=== PATIENT | male | born 1970 | race Caucasian/White ===

== ENCOUNTER 2021-09-19 22:37 | Emergency (ER) | payer BC ==
--- NOTE | 2021-09-19 22:54 | ED ---
ENT HPI - General Chief complaint: ENT Stated complaint: Food stuck in throat Time Seen by Provider: 09/19/21 22:47 Source: patient Mode of arrival: ambulatory Limitations: no limitations - Related Data Allergies Allergy/AdvReac Type Severity Reaction Status Date / Time No Known Allergies Allergy Verified 09/19/21 22:39 Review of Systems ROS Statement: Those systems with pertinent positive or pertinent negative responses have been documented in the HPI. ROS Other: All systems not noted in ROS Statement are negative. Past Medical History Past Medical History: No Reported History History of Any Multi-Drug Resistant Organisms: None Reported Past Surgical History: Hernia Repair, Orthopedic Surgery Past Psychological History: No Psychological Hx Reported Smoking Status: Never smoker Past Alcohol Use History: Occasional Past Drug Use History: None Reported General Exam Limitations: no limitations Course Vital Signs 09/19/21 09/20/21 09/20/21 22:39 00:32 06:08 Temperature 97.6 F 97.7 F Pulse Rate 76 56 L 50 L Respiratory 18 16 18 Rate Blood Pressure 152/92 125/70 149/73 O2 Sat by Pulse 97 95 Oximetry Medical Decision Making - Lab Data Result diagrams: 09/19/21 23:27 09/19/21 23:27 Lab Results 09/19/21 09/19/21 09/19/21 Range/Units 23:27 23:27 23:27 WBC 8.2 (3.8-10.6) k/uL RBC 4.90 (4.30-5.90) m/uL Hgb 14.4 (13.0-17.5) gm/dL Hct 44.1 (39.0-53.0) % MCV 90.0 (80.0-100.0) fL MCH 29.3 (25.0-35.0) pg MCHC 32.5 (31.0-37.0) g/dL RDW 13.1 (11.5-15.5) % Plt Count 296 (150-450) k/uL MPV 7.2 Neutrophils % 73 % Lymphocytes % 18 % Monocytes % 5 % Eosinophils % 3 % Basophils % 1 % Neutrophils # 6.0 (1.3-7.7) k/uL Lymphocytes # 1.5 (1.0-4.8) k/uL Monocytes # 0.4 (0-1.0) k/uL Eosinophils # 0.2 (0-0.7) k/uL Basophils # 0.0 (0-0.2) k/uL PT 10.9 (9.0-12.0) sec INR 1.0 (<1.2) APTT 25.4 (22.0-30.0) sec Sodium 143 (137-145) mmol/L Potassium 3.9 (3.5-5.1) mmol/L Chloride 110 H (98-107) mmol/L Carbon Dioxide 23 (22-30) mmol/L Anion Gap 10 mmol/L BUN 19 (9-20) mg/dL Creatinine 0.79 (0.66-1.25) mg/dL Est GFR (CKD-EPI)AfAm >90 (>60 ml/min/1.73 sqM) Est GFR (CKD-EPI)NonAf >90 (>60 ml/min/1.73 sqM) Glucose 90 (74-99) mg/dL Calcium 9.3 (8.4-10.2) mg/dL Phosphorus 4.0 (2.5-4.5) mg/dL Magnesium 2.3 (1.6-2.3) mg/dL Total Bilirubin 0.7 (0.2-1.3) mg/dL AST 23 (17-59) U/L ALT 23 (4-49) U/L Alkaline Phosphatase 90 (38-126) U/L Total Protein 7.3 (6.3-8.2) g/dL Albumin 4.6 (3.5-5.0) g/dL Disposition Clinical Impression: Esophageal foreign body Disposition: HOME SELF-CARE Condition: Good Instructions (If sedation given, give patient instructions): Esophageal Foreign Body (ED) Is patient prescribed a controlled substance at d/c from ED?: No Referrals: Jillian Ferrer MD [STAFF PHYSICIAN] - 1-2 days
[2021-09-19] MEDS ORDERED: GLUCAGON 1 MG/ML VIAL IVP STA (23:26)
[2021-09-19] MEDS ORDERED: NITROGLYCERIN SL TABS 0.4 MG TAB SUBLINGUAL STA (23:26)
[2021-09-19] MEDS ORDERED: SODIUM CHLORIDE 0.9% 1,000 ML IV STA ×2 (23:26)
[2021-09-19 23:54] LABS: Basophils % (A) 1 %; Eosinophils # (A) 0.2 k/uL (0-0.7); Eosinophils % (A) 3 %; HCT 44.1 % (39.0-53.0); HGB 14.4 gm/dL (13.0-17.5); Lymphocytes # (A) 1.5 k/uL (1.0-4.8); Lymphocytes % (A) 18 %; MCH 29.3 pg (25.0-35.0); MCHC 32.5 g/dL (31.0-37.0); Mean Platelet Volume 7.2; Monocytes # (A) 0.4 k/uL (0-1.0); Monocytes % (A) 5 %; Neutrophils % (A) 73 %; Platelet Count 296 k/uL (150-450); RDW 13.1 % (11.5-15.5); WBC 8.2 k/uL (3.8-10.6)
[2021-09-20 00:16] LABS: Partial Thromboplastin Time 25.4 sec (22.0-30.0); Prothrombin Time 10.9 sec (9.0-12.0)
[2021-09-20 00:33] LABS: ALT 23 U/L (4-49); AST 23 U/L (17-59); African American GFR (CKD) >90 (>60 ml/min/1.73 sqM); Albumin 4.6 g/dL (3.5-5.0); Alkaline Phosphatase 90 U/L (38-126); Blood Urea Nitrogen 19 mg/dL (9-20); Calcium 9.3 mg/dL (8.4-10.2); Carbon Dioxide 23 mmol/L (22-30); Glucose 90 mg/dL (74-99); Magnesium 2.3 mg/dL (1.6-2.3); Non-African American GFR(CKD) >90 (>60 ml/min/1.73 sqM); Potassium 3.9 mmol/L (3.5-5.1); Sodium 143 mmol/L (137-145); Total Bilirubin 0.7 mg/dL (0.2-1.3); Total Protein 7.3 g/dL (6.3-8.2)
[2021-09-20 01:01] LABS: Anion Gap 10 mmol/L; Chloride 110 mmol/L (98-107)
[2021-09-20 06:08] VITALS: RESP 18
[2021-09-20] MEDS ORDERED: PROPOFOL 10 MG/ML 20 ML VIAL IV ONE (06:39)
[2021-09-20] MEDS ORDERED: LIDOCAINE 2% INJ 20 MG/ML (2 ML VIAL) ONE (06:39)
[2021-09-20 07:47] VITALS: BP 161/83; PULSE 55; TEMP 98.2
--- NOTE | 2021-09-20 08:24 | P.PCN ---
Date of Procedure: 09/20/21 Procedure(s) Performed: BRIEF HISTORY: Patient is a 51-year-old, pleasant, white male came to the emergency room with acute food impaction. He had similar episode 3 years ago when he was in [place]. He denies any heartburn.. PROCEDURE PERFORMED: Esophagogastroduodenoscopy with foreign body removal and biopsy. PREOPERATIVE DIAGNOSIS: Acute food impaction. IV sedation per anesthesia. PROCEDURE: After informed consent was obtained, the patient was brought into the endoscopy unit. IV sedation was administered by Anesthesia under continuous monitoring. Initially the Olympus GIF-140 video endoscope was inserted into the mouth. Esophagus intubated without any difficulty. It was gradually advanced into the distal esophagus and there was a large piece of meat that was lost in the distal esophagus. Using a tripod was able to gently push the piece of meat into the stomach. The scope at this time was advanced into the stomach and duodenum and carefully examined. The bulb and the second part of the duodenum appeared normal. The scope at this time was withdrawn to the stomach, adequately insufflated with air, and upon careful examination, mucosa of the antrum had a month in the mid and ulcer with a clean base and biopsies were done from the margin of the ulcer. Mucosa of the, body, cardia and the fundus appeared normal. The scope was then withdrawn into the esophagus. Small hiatal hernia noted. There was a distal esophagus which are identified. There are multiple mucosal rings noted in the distal esophagus with thickened esophageal folds suspicious for eosinophilic esophagitis and biopsies were done from the mid and distal esophagus. The GE junction was located at 39 cm from the incisors. The patient tolerated the procedure well. IMPRESSION: 1. Food bolus lodged in the distal esophagus status post removal as described above. 2. Distal esophageal stricture with multiple mucosal rings suspicious for eosinophilic esophagitis status post multiple biopsies 3. 1 cm antral ulcer with a clean base status post multiple biopsies. RECOMMENDATIONS: The findings of this examination were discussed with the patient as well as his family. Follow with biopsy results. He was advised to be on a soft diet today. Start on Prilosec 20 mg twice daily and follow up in office in 2 weeks..
== END 2021-09-20 07:40 | disposition home or self-care (01) ==
LOC: EC 22:37
DX: T18.128A Food in esophagus causing other injury, initial encounter (principal)
CPT/HCPCS: 36415; 88305; 80053; 83735; 84100; 85025; 85610; 85730; 43239; 43247; 99283; 96374; 96361; J1610; J2704; J2001